=== PATIENT | male | born 1985 | race Two or more races ===

== ENCOUNTER 2017-08-02 02:51 | Emergency (ER) | payer OTHER ==
[~2017-08-02] VITALS: Ht 167.6 cm; Wt 68.5 kg
[2017-08-02 03:50] VITALS: BP 132/71
== END 2017-08-02 04:46 | disposition home or self-care (01) ==
LOC: ER 03:00
DX: L03.312 Cellulitis of back [any part except buttock and flank] (principal)
CPT/HCPCS: A4606; Z7610